=== PATIENT | female | born 2000 | race Hispanic/Latino ===

== ENCOUNTER 2019-12-10 14:19 | Emergency (ER) | payer BC ==
--- OUTSIDE RECORDS SUMMARY | 2019-12-10 14:21 | XMS REPORT | Continuity of Care Document ---
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 Group (finding) Muscle pain Active Problem 10/07/2018 [facility] (finding) Group Stress Active Problem 10/07/2018 Medica l (finding) Group Medications Medication Details Route Status Patient Ordering Order Source Instructions Provider Date MethylPREDNISolone See Active Dose Pack 4 mg oral Instructio 2017 M edical tablet ns, PO, Group Daily, Use as directed on label., # 1 Pack, 0 Refill(s), Pharmacy: [facility] [place] Ketorolac 10 mg = 1 Active Tromethamine 10 MG tab, PO, 2018 [facility]i livia Oral Tablet Q6H, PRN Group Headache 6-10, # 20 tab, 0 Refill(s) Acetaminophen 500 MG 500 mg = 1 Active Oral Tablet tab, PO, 2018 Medical [Tylenol] Q4H, PRN Group Fever, # 60 tab, 0 Refill(s) Melatonin Bedtime, 0 Inactive Refill(s) 2018 [facility] Group Allergies, Adverse Reactions, Alerts Substance Category Reaction Severity Reaction Status Date Comments S ource type Reported No Known Assertion Drug Medication allergy Medic al Allergies Group Immunizations No Data Provided for This Section Results No Data Provided for This Section Pathology Reports No Data Provided for This Section Diagnostic Reports No Data Provided for This Section Consultation Notes No Data Provided for This Section Discharge Summaries No Data Provided for This Section History and Physicals No Data Provided for This Section Vital Signs Vital Sign Value Date Comments Source BMI Calculated 21.07 12/11/2017 [facility] Weight 47.33 12/11/2017 [facility] Height 149.86 cm 12/11/2017 [facility] Systolic (mm Hg) 117 12/11/2017 [facility] Group Diastolic (mm Hg) 77 12/11/2017 [facility] Group BMI Calculated 20.99 10/27/2017 [facility] Weight 48.75 10/27/2017 [facility] p Height 152.4 cm 10/27/2017 [facility] p Systolic (mm Hg) 102 10/27/2017 Medical Group Diastolic (mm Hg) 70 10/27/2017 Medical Group Heart Rate 77 10/27/2017 Medical Grou p Encounters Location Location Encounter Encounter Reason Attending ADM DC Stat us Source Details Type Number For Provider Date Date Visit [facility] OP Therapy [id number] Lauren 07/09 08/08 [facility] Patients Se[facility] [id number] BARBARA 10/27 [facility] Out[facility] [id number] Barbara 10/27 10/28 [facility] Outpatient [id number] CHRISTOPHER FLURY 12/11 [facility] Out[facility] [id number] Barbara 12/11 12/12 [facility] Outpatient [id number] BARBARA 03/20 [facility] Ambulatory [id number] Barbara 03/20 03/20 Neurology Pre-Reg [facility] Procedures Procedure Code Date Perfomer Comments Source Injection(s); 10/27/2017 Medical single or Group multiple trigger point(s), 3 or more muscles Assessment and Plan No Data Provided for This Section Plan of Care No Data Provided for This Section Social History Social History Date Source Social History TypeResponse 10/27/2017 Medical Katy prabhakar Employment/School Status: Student. Work/School descriptio n: [employer], Business major. 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 [id number] sophomore at [employer] Other: Lives with Mother in [place], and during school year [place] in an apt [place] [employer] 1 dog. Smoking Status Never smoker; Ready to change: No; Gisselle rns about tobacco use in household: No; Exposure to Tobacco Smoke None; Cigarette Smoking Last 365 Days No; Reg Smoking Cessation Counseling No entered on: 12/11/17 No data available for this 08/08/2017 [facility] section Family History No Data Provided for This Section Advance Directives No Data Provided for This Section Functional Status No Data Provided for This Section
== END 2019-12-10 14:28 | disposition left against medical advice (07) ==
LOC: ER 14:19
DX: Z02.9 Encounter for administrative examinations, unspecified (principal)